=== PATIENT | female | born 1935 | race Caucasian/White ===

== ENCOUNTER 2016-08-27 09:26 | Inpatient (IN) | payer OTHER ==
--- NOTE | 2016-08-27 10:03 | PROVIDER DOCUMENTATION ---
HPI-Head Injury <Yeny Richard - Last Filed: 08/27/16 12:05> - General Source: patient, family - History of Present Illness-Head Injury Head Injury Location: reports: parietal Other injuries associated with incident:: reports: none Quality of Pain: reports: throbbing Severity: reports: moderate Onset/Duration: reports: abrupt, just prior to arrival Timing: reports: still present, constant Method of Injury: reports: direct blow, fell Any recent trauma/injury?: reports: none Loss of Consciousness: no loss of consciousness Modifying Factors: improves with: nothing Injury Associated Symptoms: reports: headaches. denies: back/neck pain, chest pain, dizziness, vomiting, weakness, trouble walking Locality of Occurance: Home Similar Symptoms Previously?: No Recently seen or treated by another doctor?: No <Geronimo Damon - Last Filed: 08/27/16 15:10> - General Chief Complaint: Head Injury Stated Complaint: FALL-HEAD LAC Time Seen by Provider: 08/27/16 09:57 Allergies/Adverse Reactions: Patient Allergies Allergy/AdvReac Type Severity Reaction Status Date / Time No Known Allergies Allergy Verified 08/27/16 11:09 Home Medications: Amlodipine Besylate [Norvasc] 10 mg PO DAILY 02/23/14 Ergocalciferol (Vitamin D2) [Vitamin D2] 50,000 unit PO DIRECTED 02/23/14 Lansoprazole [Prevacid] 30 mg PO DAILY 02/23/14 Levothyroxine [Synthroid] 125 microgm PO DAILY 02/23/14 Spironolactone 25 mg PO DAILY 02/23/14 Aspirin EC 81 mg PO DAILY 08/27/16 Calcitriol 0.25 mcg PO DAILY 08/27/16 Donepezil [Aricept] 10 mg PO DAILY 08/27/16 Furosemide [Lasix] 20 mg PO DAILY 08/27/16 Hydralazine HCl 100 mg PO TID 08/27/16 Iron,Fm,Ps/Folic/B,C18/L.casei [Fusion Plus Capsule] 1 each PO DAILY 08/27/16 Memantine HCl [Namenda Xr] 28 mg PO DAILY 08/27/16 - History of Present Illness-Head Injury Nature of Presenting Problem: patient is a 81 y/o F that presents with laceration to posterior head and skin tear to left elbow after falling this am. It is unclear what happened during the fall due to patient's dementia. She can not report anything that happened. family reports patient has had fatigue and weakness over the past week. (Geronimo Damon) Review of Systems - Adult - REVIEW OF SYSTEMS - ADULT Constitutional: reports: no symptoms reported Eyes: denies: decreased vision, blurred vision, double vision, eye pain Ears, Nose, Mouth & Throat: denies: ear discharge, epistaxis, loose teeth, mouth /dental pain, mouth swelling Cardiovascular: denies: chest pain, palpitations, syncope Respiratory: denies: dyspnea on exertion, hemoptysis, shortness of breath Gastrointestinal: denies: abdominal pain, nausea, vomiting Genitourinary: reports: no symptoms reported Musculoskeletal: denies: back pain, joint pain, neck pain Integumentary: reports: other (laceration). denies: itching, rash Neurological: reports: headache/migraines. denies: dizziness/vertigo, seizure, syncope Psychiatric: reports: no symptoms reported Endocrine: reports: no symptoms reported Hematologic/Lymphatic: reports: no symptoms reported Allergic/Immunologic: reports: no symptoms reported All Other Systems: Reviewed and Negative <Geronimo Damon - Last Filed: 08/27/16 15:10> Past History - Adult - PAST MEDICAL HISTORY-ADULT Review of Records: reports: Old Records Reviewed, Nursing Assessment Review, Medications Reviewed Cardiovascular: reports: HTN Neurological: reports: CVA, dementia Endocrine/Immune: reports: thyroid disorder - PRIOR SURGERIES/PROCEDURES Surgical/Procedure History: reports: other (cataracts) - IMMUNIZATION STATUS Childhood Immunizations: See Nurse Assessment Flu Vaccine: See Nurse Assessment - FAMILY HISTORY Family History: reviewed, not pertinent - SOCIAL HISTORY Smoking: quit greater than 1 year, cigarettes Living Situation: family <Geronimo Damon - Last Filed: 08/27/16 15:10> Physical Exam- Neurological - Physical Exam-Neuro Initial Vital Signs Reviewed: Yes General Appearance: alert (2.5 cm to posterior head), no apparent distress Eye Exam: bilateral eye: other (pinpoint ) HENMT: moist mucous membranes, normal ENT inspection, TMs normal Head Injury: lacerations. negative: Crow's Sign, raccoon eyes Neck: non-tender, full range of motion, normal inspection. negative: lymphadenopathy Respiratory: lungs clear, normal breath sounds, no respiratory distress, no accessory muscle use Cardiovascular: regular rate, rhythm, no edema, no murmur Abdominal Exam: normal bowel sounds, non tender, soft Extremity: normal range of motion, no calf tenderness, normal capillary refill, pelvis stable. 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 negative: anxious, depressed affect - Glascow Coma Scale Best Eye Response: (4) open spontaneously Best Verbal Response: (5) oriented Best Motor Response: (6) obeys commands Total Glascow Score: 15 <Geronimo Damon - Last Filed: 08/27/16 15:10> Progress - CT/MRI 1 CT Study: Head Impression: Normal (No acute intracranial disease per radiology) - CONSULTS/PCP/HOSPITALIST Notification #1 *Consult/PCP/Hospitalist*: Dr. Cunningham Time Discussed: 12:06 Reason/Comments: uti, uremia c CKD IV, weakness <Yeny Richard - Last Filed: 08/27/16 12:05> - EKG 1 Time of EKG reading by physician:: 12:08 EKG Read and Signed by:: Chela Camarillo Jr EKG Interpretation (*Must complete 3 of following elements*): Abnormal Rate: 68 Rhythm: Sinus Rhythm PSVCS QRS: LVH W[place] Interval: normal ST Wave: non-specific ST changes <Geronimo Damon - Last Filed: 08/27/16 15:10> - PLAN OF CARE/RESULTS Progress/Plan/Lab Results: Vital Signs Temp Pulse Resp BP Pulse Ox 08/27/16 09:32 97.4 F L 82 16 134/71 100 No Known Allergies Allergy (Verified 08/27/16 11:09) Amlodipine Besylate [Norvasc] 5 mg PO DAILY 02/23/14 Ergocalciferol (Vitamin D2) [Vitamin D2] 50,000 unit PO DIRECTED 02/23/14 Furosemide [Lasix] 20 mg PO BID 02/23/14 Lansoprazole [Prevacid] 30 mg PO DAILY 02/23/14 Levothyroxine [Synthroid] 87.5 microgm PO DAILY 02/23/14 Spironolactone 25 mg PO DAILY 02/23/14 Aspirin EC 81 mg PO DAILY 08/27/16 Calcitriol 0.25 mcg PO DAILY 08/27/16 Donepezil [Aricept] 10 mg PO DAILY 08/27/16 Furosemide [Lasix] 20 mg PO DAILY 08/27/16 I&O 08/26/16 08/27/16 08/28/16 06:59 06:59 06:59 Output Total 10 Balance -10 Laboratory 08/27/16 08/27/16 08/27/16 11:34 10:25 10:25 WBC RBC Hgb Hct MCV MCH MCHC RDW Std Deviation Plt Count MPV Immature Gran % (Auto) Neut % (Auto) Lymph % (Auto) [place] % (Auto) Eos % (Auto) Baso % (Auto) Immature Gran # (Auto) Neut # Lymph # [place] # Eos # Baso # PT INR PTT ([place] FS) Sodium Potassium Chloride Carbon Dioxide Anion Gap BUN Creatinine Estimated GFR/1.73 m2 BUN/Creatinine Ratio Glucose Calculated Osmolality Calcium Total Bilirubin AST ALT Alkaline Phosphatase Creatine Kinase Troponin T 0.078 Total Protein Albumin Globulin Albumin/Globulin Ratio TSH 7.09 H Free T4 1.60 Urine Source CLEAN CATCH Urine Color YELLOW Urine Turbidity HAZY Urine pH 5.5 Ur Specific [place] 1.017 Urine Protein 100 A Ur Glucose (Stick) NEGATIVE Ur Ketones (Stick) TRACE A Urine Blood TRACE A Urine Nitrite NEGATIVE Urine Bilirubin NEGATIVE Urobilinogen Dipstick NORMAL Urine Leukocytes LARGE A Urine WBC (Auto) TNTC A Urine RBC (Auto) 20-40 A U Epithel Cells (Auto) <10 Urine Bacteria (Auto) 1+ 08/27/16 08/27/16 08/27/16 10:25 10:25 10:25 WBC 7.97 RBC 3.61 L Hgb 12.1 Hct 34.8 L MCV 96.4 MCH 33.5 H MCHC 34.8 RDW Std Deviation 13.6 Plt Count 181 MPV 10.2 Immature Gran % (Auto) 2.0 H Neut % (Auto) 83.7 H Lymph % (Auto) 9.4 L [place] % (Auto) 4.5 Eos % (Auto) 0.3 Baso % (Auto) 0.1 Immature Gran # (Auto) 0.16 H Neut # 6.67 H Lymph # 0.75 L [place] # 0.36 Eos # 0.02 Baso # 0.01 PT 10.6 INR 1.00 PTT (Actin FS) 22.9 Sodium 140 Potassium 3.2 L Chloride 95 L Carbon Dioxide 23 L Anion Gap 22 BUN 78 H Creatinine 4.3 H Estimated GFR/1.73 m2 10 BUN/Creatinine Ratio 18 Glucose 91 Calculated Osmolality 302 Calcium 8.9 Total Bilirubin 0.50 AST 27 ALT 9 L Alkaline Phosphatase 90 Creatine Kinase 48 Troponin T Total Protein 7.2 Albumin 3.5 Globulin 3.7 Albumin/Globulin Ratio 0.9 TSH Free T4 Urine Source Urine Color Urine Turbidity Urine pH Ur Specific [place] Urine Protein Ur Glucose (Stick) Ur Ketones (Stick) Urine Blood Urine Nitrite Urine Bilirubin Urobilinogen Dipstick Urine Leukocytes Urine WBC (Auto) Urine RBC (Auto) U Epithel Cells (Auto) Urine Bacteria (Auto) Orders Category Date Time Status Cardiac Monitoring DIRECTED Care 08/27/16 10:13 Active Finger Stick Blood Sugar (ED) DIRECTED Care 08/27/16 10:13 Active Saline Loc NOW Care 08/27/16 10:13 Active HEAD W/O CONTRAST [CT] Stat Exams 08/27/16 10:13 Completed CBC WITH ELECTRONIC DIFF [HEME] Stat Lab 08/27/16 10:25 Completed CK PROFILE [SP CHEM] Stat Lab 08/27/16 10:25 Completed COMPREHENSIVE METABOLIC PANEL [CHEM] Stat Lab 08/27/16 10:25 Completed FREE T4 Stat Lab 08/27/16 10:25 Completed PROTIME WITH INR [COAG] Stat Lab 08/27/16 10:25 Completed PTT [COAG] Stat Lab 08/27/16 10:25 Completed TROPONIN T Stat Lab 08/27/16 10:25 Completed TSH Stat Lab 08/27/16 10:25 Completed URINALYSIS W/POSS RFLX CULT [URINALYSIS] Stat Lab 08/27/16 11:34 Completed URINE CULTURE [RM] Routine Lab 08/27/16 12:03 Received 0.9% Sodium Chloride Inj [Ns] 1,000 ml Med 08/27/16 12:03 Active IV 75 mls/hr CefTRIAXONE 1 GM/NS [Rocephin 1 gm/Ns] 50 ml Med 08/27/16 12:03 Active IV NOW Pulse Oximetry Stat Oth 08/27/16 10:13 Active EKG [EKG] Stat Ther 08/27/16 10:13 Ordered Discussed patient with Dr. Camarillo, who came to bedside for discussion with family about admission. Family is in agreement with plan. They are her power of transactional attorney and patient has a living will. Family said they will obtain this information for processing here. (Yeny Richard) Departure - Departure Time of Disposition Order: 12:06 Certified Medical Emergency: Emergent <Yeny Richard - Last Filed: 08/27/16 12:05> - Departure Time of Disposition Order: 12:06 Certified Medical Emergency: Emergent <Geronimo Damon - Last Filed: 08/27/16 15:10> - Departure DIAGNOSIS: Laceration, CKD (chronic kidney disease) stage 5, GFR less than 15 ml/min, Weakness, Acute UTI Disposition: ADMITTED INPATIENT 09 Condition: Stable Attestation - Physician/ Mid-level Attestation Patient care was provided by Mid-level provider (SNAGGER/PA):: Yes Mid-level provider:: Yeny Richard Mid-level documentation review:: The Mid-level provider documentation, treatment plan and medical decision making was reviewed by the physician who agrees with all treatment and medical decision making by the MLP. The physician spent face to face time with patient:: Yes <Yeny Richard - Last Filed: 08/27/16 12:05> - Scribe Verification/Attestation Scribe:: Geronimo Damon Acting as Scribe for:: Yeny Richard Scribe documention review:: This chart was documented by a scribe and accurately reflects the service the provider performed and the decisions made by the provider. - Physician/ Mid-level Attestation Patient care was provided by Mid-level provider (SNAGGER/PA):: Yes Mid-level provider:: Yeny Rcihard Mid-level documentation review:: The Mid-level provider documentation, treatment plan and medical decision making was reviewed by the physician who agrees with all treatment and medical decision making by the MLP. <Geronimo Damon - Last Filed: 08/27/16 15:10> Physician Attestation
[2016-08-27 10:39] LABS: MANUAL DIFF NEEDED? NO
[2016-08-27 10:41] LABS: BASO% 0.1 % (0.0-0.8); EOS# 0.02 X1000 (0.0-0.7); EOS% 0.3 % (0.0-10.0); HEMATOCRIT 34.8 % (37.0-47.0); HEMOGLOBIN 12.1 g/dL (12.0-16.0); IMM GRAN# 0.16 X1000 (0.0-0.04); LYMPH# 0.75 X1000 (1.2-3.4); LYMPH% 9.4 % (20.5-51.1); MCH 33.5 PG (27-31); MCHC 34.8 g/dL (33-37); MCV 96.4 FL (81-99); MONO# 0.36 X1000 (0.11-0.59); MONO% 4.5 % (1.7-9.3); MPV 10.2 FL (7.4-10.4); NEUT% 83.7 % (42.2-75.2); PLT 181 X1000 (130-400); RBC 3.61 XMIL (4.2-5.4)
[2016-08-27 10:49] LABS: PROTIME 10.6 Seconds (9.2-11.7); PTT 22.9 Seconds (22.0-36.0)
--- NOTE | 2016-08-27 10:57 | Diag Imaging Result Document ---
PROCEDURE NAME: HEAD W/O CONTRAST - 08/27/2016 CT OF THE HEAD WITHOUT CONTRAST: FINDINGS: There are calcifications in the internal carotid arteries bilaterally as well as the right vertebral artery. There is mild generalized cerebral atrophy. There is a lacune present in the basal ganglia on the left which has a maximum dimension of 11 mm. Some patchy lucencies are present in the external capsule regions bilaterally. There are no previous studies available for comparison. There is no evidence of bleed or abnormal extra-axial fluid collection. The visualized paranasal sinuses are clear. No acute bony abnormalities are present. There is apparently a scalp laceration over the vertex and posterior right parietal bone. IMPRESSION: 1. No evidence of acute intracranial disease. 2. Chronic microvascular changes. 3. Scalp laceration.
[2016-08-27 11:05] LABS: ALBUMIN 3.5 g/dL (3.5-5.0); CALCIUM 8.9 mg/dL (8.8-10.2); POTASSIUM 3.2 mmol/L (3.5-5.1); TOTAL BILIRUBIN 0.5 mg/dL (0.20-1.00); TOTAL PROTEIN 7.2 g/dL (6.3-8.3)
[2016-08-27 11:09] LABS: FREE T4 1.6 ng/dL (0.93-1.70)
[2016-08-27 11:36] LABS: URINE MICRO REVIEW NEEDED? NO; URINE SOURCE CLEAN CATCH
[2016-08-27 11:48] LABS: BILIRUBIN URINE NEGATIVE (NEGATIVE); BLOOD URINE TRACE (NEGATIVE); COLOR YELLOW; GLUCOSE URINE NEGATIVE (NEGATIVE); LEUKOCYTES URINE LARGE (NEGATIVE); NITRITE URINE NEGATIVE (NEGATIVE); PH URINE 5.5; PROTEIN URINE 100 mg/dL (NEGATIVE); SP GRAVITY URINE 1.017; TURBIDITY URINE HAZY (CLEAR); UROBILINOGEN URINE NORMAL (NORMAL)
[2016-08-27 11:49] LABS: UR EPITHELIAL CELLS <10 /HPF (<10); URINE BACTERIA 1+ /HPF; URINE CULTURE NEEDED? YES; URINE RBC 20-40 /HPF (<10); URINE WBC TNTC /HPF (<10)
[2016-08-27] MEDS ORDERED: ROCEPHIN 1 GM/NS 50 ML IV ONE (12:03)
[2016-08-27] MEDS ORDERED: NS 1,000 ML IV ONE (12:03)
--- NOTE | 2016-08-27 13:37 | HISTORY AND PHYSICAL ---
HISTORY OF PRESENT ILLNESS: This is an 81-year-old white female. She lives alone. Her sitter came over and she was sitting up in a chair but obviously had fallen and hit her head. She had about a 6 cm gash in the occiput that required 6 stitches. She has dementia. She did not give any history of syncope or presyncope or pain or whether she stumbled. Family has noted over the last several months seeing a pretty impressive decline in her cognitive ability and her weakness. Her appetite is very poor. She presented to the emergency room. PAST MEDICAL HISTORY: She has apparently had a history of abdominal hysterectomy, bladder surgery. I think she has had a history of hypertension and questionable history of coronary artery disease. She is on Plavix. HOME MEDICATIONS: Norvasc 5 mg a day, aspirin 81 mg a day, calcitriol 0.25 mcg p.o. daily, Aricept 10 mg p.o. daily, vitamin D2 68747 units I think once a week, Lasix 20 mg p.o. b.i.d. or once a day depending, Prevacid 30 mg a day, Synthroid 87.5 mg daily, spironolactone 25 mg a day. FAMILY HISTORY: Noncontributory. SOCIAL HISTORY: Lives alone. Lost her . Has a sitter come check on her. Very attentive family. REVIEW OF SYSTEMS: Unable to really give us but the family feels like she has lost weight. Appetite has declined. They have not noticed any respiratory distress.Cardiovascular: No complaints of chest pain or signs of shortness of breath. GI/: They have not noticed any change in bowels or bladder. PHYSICAL EXAMINATION: VITAL SIGNS: Today temp 97.4 degrees, pulse 82, respirations 16, blood pressure 134/70. EYES: Pupils are equal and round. LUNGS: Clear in all lung terrell. CARDIOVASCULAR: Regular rhythm and rate without murmur or S3. ABDOMEN: Soft. SKIN: Warm and dry. A 6 cm laceration, jagged on the occiput, back of her head with sutures applied. NEUROLOGIC: She is alert and oriented to person and place. Very pleasant. LAB: White count 7,970, hematocrit 34, platelet count 181,000. Sodium 140, potassium 3.2, chloride 95, bicarb 23, BUN 78, creatinine 4.3. Liver function is unremarkable. TSH was 7.09, T4 is 1.6. PT is 10.6, INR is 1.0, PTT is 22. Urinalysis: Vwz-vvzkzxri-mk-count white blood cells, 20-40 red blood cells, 1+ bacteria, leukocytes large. CT of her head without contrast: No evidence of acute intracranial disease. Chronic microvascular changes. Scalp laceration appreciated. In looking back to see if she has had an echocardiogram, I do not see that and maybe well worth getting this time. In looking back at old EKGs, unremarkable. ASSESSMENT AND PLAN: 1. A fall and laceration to her head. Do not know what happened. Do not know if it was syncopal or not. CT of the head without contrast is unremarkable. She has underlying dementia and cannot give much history. We will watch and observe. I am assuming she may have had a concussion with this. We will look for sign of arrhythmia or neurologic changes. She has no history to suggest seizure. There was no incontinence of bowel or bladder that was noted. 2. Urinary tract sediment. I suspect urinary tract infection. She gives no history of dysuria or gross hematuria but we are going to treat her for a urinary tract infection and possibly even pyelonephritis. 3. Underlying dementia. She is on maximum medications and they are starting see progression. Family needs to decide about level of independence and whether it is time to go to a care home. We will see how she does with treatment. 4. Chronic kidney disease. Serum creatinine is 4. In looking back at her creatinine, back in May 2012 it was 1.9. So I am not sure of other levels and how fast this is deteriorating. Will give her fluids. She does look intravascularly dry at this time. 5. Intravascular volume depletion. Creatine kinase is okay at 48. Albumin is 3.5. Thyroid looks good. Folate a little low. B12 is a good level, 700.
[2016-08-27] MEDS ORDERED: TYLENOL PO PRN (13:49)
[2016-08-27] MEDS ORDERED: ZOFRAN IV PRN (13:49)
[2016-08-27] MEDS: LEVAQUIN 250 MG/D5W 50 ML IV SCH (15:23)
[2016-08-27] MEDS: NS 1,000 ML IV SCH (15:27)
--- NOTE | 2016-08-27 16:31 | CONSULTATION ---
DATE OF CONSULTATION: 08/27/2016 REASON FOR CONSULTATION: Assistance with management. HISTORY OF PRESENT ILLNESS: Ms. Salcedo is an 81-year-old white female who is well known to me. She has known stage 5 chronic kidney disease that has been progressively worsening in the last 1 year. She has been also declining from a cognitive standpoint in the last year. She had the loss of her about a year ago. Since that time she has been worse. She is functionally worse, though she has still been living alone. She has a caregiver who stays with her for 8 hours a day but she spends the night alone and her daughter checks on her daily. Today she came to the door to the let the family in and she had blood caked on the back of her head and on the hands. She was not able to relate the injury and does not know yet how that happened. The family states that over the last 2 weeks she has been much more confused and disoriented on occasion. Regarding her renal dysfunction, she has known stage 5 disease and her creatinine today is really not far from her baseline creatinine. We have been discussing renal replacement therapy with her and she attended our modality education class. Her daughter and son spoke with her about this and in fact, her daughter attended class with her. She was emphatic at that time that she did not want to do any form of dialysis and both of her children are aware of her opinion and accept that decision. PAST MEDICAL HISTORY: 1. Stage 5 chronic kidney disease as above. 2. Dementia. 3. Hypertension. 4. Hypothyroidism. HOME MEDICATIONS: Amlodipine, aspirin, calcitriol, Aricept, vitamin D, furosemide, Prevacid, Synthroid, spironolactone. ALLERGIES: None. SOCIAL HISTORY: As above. FAMILY HISTORY: Noncontributory. REVIEW OF SYSTEMS: Noncontributory except as above. PHYSICAL EXAMINATION: Vital Signs: Blood pressure 134/71, heart rate 70, respiration 18, afebrile. General: She is an elderly woman, pleasant and conversant, eating her dinner. No acute distress. She greeted me by name. Skin: Warm and dry. HEENT: She has blood caked in her hair and multiple donn on the posterior part of her scalp conjunctivae are pink. Pupils are equal. Oropharynx is clear and moist. Dentition normal. Neck: Supple. Trachea is midline. No jugular venous distention. Heart: Regular with a gallop. No murmurs. Lungs: Have equal breath sounds. No crackles or wheezes. Abdomen: Obese and soft. Bowel sounds are present. Extremities: Have 1+ edema. No clubbing or cyanosis. Neurologic Exam: Grossly nonfocal. She moves all extremities. Her facial muscles are symmetrical. Pupils are symmetrical, etc. She knows where she is but she does not know the date or time of year or the season. She is able to recognize me by name and her daughter by name and her granddaughter's 1st name, though she cannot remember her last name. IMPRESSION AND PLAN: Stage 5 chronic kidney disease. It is not clear to me that her current symptoms are in any way related to her renal dysfunction. At any rate, she has made clear that she does not want renal replacement therapy. I respect this decision and see no reason to revisit this issue. Regarding her worsened mental status, I certainly agree that treating any reversible issues would be the best plan. She is currently on Levaquin to treat her urinary tract infection and I think that is appropriate. She is receiving IV fluids and I think that is appropriate for 24 hours but will consider discontinuation in the morning. She certainly is eating and drinking well currently. She needs to be a DNR.
[2016-08-28 06:44] LABS: HEMATOCRIT 29.1 % (37.0-47.0); HEMOGLOBIN 9.8 g/dL (12.0-16.0); MCH 33.4 PG (27-31); MCHC 33.7 g/dL (33-37); MCV 99.3 FL (81-99); MPV 9.9 FL (7.4-10.4); RBC 2.93 XMIL (4.2-5.4)
[2016-08-28 06:50] LABS: INR 1.03; PROTIME 10.9 Seconds (9.2-11.7); PTT 23.7 Seconds (22.0-36.0)
[2016-08-28 07:25] LABS: ALBUMIN 2.9 g/dL (3.5-5.0); CALCIUM 8.6 mg/dL (8.8-10.2); POTASSIUM 3.1 mmol/L (3.5-5.1); TOTAL BILIRUBIN 0.46 mg/dL (0.20-1.00)
--- NOTE | 2016-08-28 07:25 | EKG Report ---
Test Performed on : 08/28/2016 06:31:03 AM Test Reason : chest pain Blood Pressure : / mmHG Vent. Rate : 063 BPM Atrial Rate : 063 BPM P-R Int : 184 ms QRS Dur : 082 ms QT Int : 470 ms P-R-T Axes : 059 025 182 degrees QTc Int : 480 ms Normal sinus rhythm. with sinus arrhythmia. Voltage criteria for left ventricular hypertrophy ST & T wave abnormality, consider lateral ischemia (vs. LVH repolarization abn) Abnormal ECG When compared with ECG of 27-AUG-2016 12:08, (Unconfirmed) premature supraventricular complexes. are no longer present T wave inversion no longer evident in V3 Confirmed by Alex Nguyen DO ([id number]) on 08/28/2016 6:41:51 PM
[2016-08-28] MEDS: SYNTHROID PO SCH (10:14)
[2016-08-28] MEDS: ARICEPT PO SCH (10:14)
[2016-08-28] MEDS: NS 1,000 ML IV SCH ×3 (15:09→21:47)
[2016-08-28] MEDS: LEVAQUIN 250 MG/D5W 50 ML IV SCH (15:09)
[2016-08-28] MEDS ORDERED: LABETALOL IV PRN (15:57)
[2016-08-28] MEDS: APRESOLINE PO SCH ×2 (16:11→21:47)
[2016-08-28] MEDS: NORVASC PO SCH (16:11)
--- NOTE | 2016-08-28 16:27 | PROGRESS NOTE ---
DATE: 08/28/2015 SUBJECTIVE: Patient currently sitting up in bed. She has been ambulating to the bathroom with assistance from her daughter. OBJECTIVE: Vital Signs: Temperature 98.1 degrees, pulse 79, respiratory rate 18, blood pressure 158/58. Intake and output: Intake 625 mL. Output has not been measured. General: This is a pleasant, elderly female sitting up on the side of the bed. She does have some confusion noted. HEENT: Normocephalic. She has donn noted. Conjunctivae are pink. Oral mucosa is moist. Neck: Supple. Trachea midline. There is no JVD. Cardiovascular: Regular rate and rhythm. S4. Pulmonary: She has equal excursion. She is clear bilaterally. Abdomen: Obese , soft, with positive bowel sounds. : Not inspected. She is voiding. Extremities: She has 1+ pretibial edema but no clubbing or cyanosis. She is ambulatory with minimal assistance. Integumentary: Skin is warm and dry otherwise. LAB DATA: WBC of 4.6, hemoglobin 9.8. Sodium 142, potassium 3.1, CO2 24, BUN 75, creatinine 3.7, calcium 8.6, albumin 2.9. ASSESSMENT AND PLAN: 1. Stage 5 chronic kidney disease with worsening of renal function. She has had a mild improvement with her creatinine overnight; however, this does not change her current status. The patient and family have made a decision that renal replacement therapy is not appropriate for her and is not desired. I had a long discussion with the daughter regarding typical outcomes of patients with renal failure who do not undergo dialysis. She has requested that we consult palliative care to perhaps initiate hospice for home health if possible. We will be happy to assist with this need. 2. Electrolytes, acid-base balance. Acceptable. 3. Anemia, stable. Continue to monitor. 4. Blood pressure acceptable. Seen, data reviewed, discussed with Octavio Silver on 08/28/15. I agree with the above assessment and plan of care. rg Dictated by PHILLY Dunn for Kalpesh Villagran MD [facility]
--- NOTE | 2016-08-28 17:46 | ECHO REPORT ---
ORDER DATE: 08/28/2016 INDICATION: Fall, laceration to the head. FINDINGS: 1. Right atrium is normal size. 2. Mild tricuspid regurgitation. RV systolic pressure of 29. 3. Normal RV size and systolic function. 4. Mild pulmonic insufficiency. 5. Normal left atrial size at 3.4. 6. No mitral valve prolapse. Mild mitral regurgitation. 7. Normal LV size, end-diastolic dimension of 3.6 cm. Normal LV wall thicknesses with a posterior and interventricular septal wall thickness of 0.9 cm each. Normal LV systolic function. Calculated EF of 63%. 8. The aortic valve appears calcified with restriction of motion. The peak gradient across the valve is 24 with a mean of 13. The valve area was calculated at 1.1 cm2. The valve area would suggest moderate aortic stenosis, but the gradients would suggest mild. Given the fact that there is no left ventricular hypertrophy, and the left atrium is normal and the gradients are so low, I would suspect that this is more likely mild aortic stenosis. There is mild aortic insufficiency. 9. The aorta appears normal in visualized segments. 10. No pericardial effusion seen.
--- NOTE | 2016-08-28 18:01 | PROGRESS NOTE ---
DATE: 08/28/2016 SUBJECTIVE: Patient does not recall what happened to her. She notes that she lost consciousness but she did not remember anything else about it. She is feeling fine. Oriented. OBJECTIVE: Vital Signs: Temperature 98.1 degrees, heart rate 79, respiratory rate 18, blood pressure 158/58, O2 saturation 96% on room air. General Examination: This is an 81-year-old female lying in bed in no acute distress. HEENT: Head is normocephalic, atraumatic. Anicteric sclerae and pale conjunctivae. Mucous membranes moist. Neck: Supple. No JVD noted. No carotid bruits. No lymphadenopathy. No thyromegaly. Cardiovascular: S1, S2 heard. No murmurs, gallops, or rubs. Regular rate and rhythm. Respiratory Examination: Clear bilaterally to auscultation. No work of breathing or using accessory muscles. Abdomen: Soft, nontender to palpation. Bowel sounds present. No organomegaly. Extremities: No clubbing, cyanosis, or edema. Peripheral pulses present in both legs. Neurological: Patient is alert and oriented x3. Able to move her extremities. Cranial nerves 2-12 grossly normal. LABORATORY DATA: White cell count 4.65, hemoglobin 9.8, hematocrit 29.1, platelets 139,000. Sodium 142, potassium 3.1, chloride 103, bicarb 24, BUN 75, creatinine 3.9. ASSESSMENT AND PLAN: 1. Syncope. At this point we do not know exactly what happened with this patient. She lost consciousness. She hit her head needing to have 6 stitches to repair this laceration in the head. At this time patient is fine, not complaining of major headache. At this time will continue watching her closely. 2. Urinary tract infection. At this point will continue with levofloxacin and the urine culture shows gram-negative rods. Will follow the results of the urine culture really close. 3. Underlying dementia stable. 4. Chronic kidney disease, actually the renal function has worsened from 1.9 five years ago to today. At this time will continue with IV fluids. We will see how this patient does. 5. Intravascular volume depletion stable now.
[2016-08-29] MEDS: NS 1,000 ML IV SCH (06:31)
[2016-08-29 06:40] LABS: HEMATOCRIT 28.3 % (37.0-47.0); HEMOGLOBIN 9.6 g/dL (12.0-16.0); MCH 33.8 PG (27-31); MCHC 33.9 g/dL (33-37); MCV 99.6 FL (81-99); MPV 10.1 FL (7.4-10.4); RBC 2.84 XMIL (4.2-5.4)
[2016-08-29 07:12] LABS: ALBUMIN 2.7 g/dL (3.5-5.0); POTASSIUM 2.9 mmol/L (3.5-5.1)
--- NOTE | 2016-08-29 08:40 | PROGRESS NOTE ---
DATE: 08/29/2016 SUBJECTIVE: Patient resting in bed. She is at her usual baseline mental state with confusion. She is pleasant and cooperative with the examination. PHYSICAL EXAMINATION: Vital Signs: Temperature 97.4 degrees, pulse 70, respiratory rate 19, blood pressure 172/58, intake 230 mL, output 1.1 L. General: This is an elderly female, resting in bed. No acute distress. HEENT: Normocephalic, with donn noted. GALLO. Oral mucosa moist. Neck: Supple. No JVD. Cardiovascular: Regular rate and rhythm. No murmur or gallop appreciated today. Pulmonary: Equal excursion. Clear bilaterally. Abdomen: Soft with positive bowel sounds. : Not inspected. She continues to void. Extremities: She has trace pretibial edema. No clubbing or cyanosis. She is ambulatory with assistance. Integumentary: Skin is warm and dry otherwise. She does have some bruising noted to the upper extremities from her fall. LAB DATA: WBC of 4.7, hemoglobin 9.6. Sodium 141, potassium 2.9, CO2 22, BUN 60, creatinine 3, albumin 2.7. ASSESSMENT AND PLAN: 1. Chronic kidney disease stage V with overlying acute kidney injury. She has continued to have some mild improvement with her creatinine over the last 24 hours. Her filter rate is still below 20 and she is still chronic kidney stage V. Continue to monitor. No dialysis. 2. Electrolytes, acid-base balance. Her potassium is low. Add adjunct therapy. 3. Anemia, stable. 4. Hypertension. Home medications started. Seen, data reviewed, discussed with Octavio Silver on 08/29/16. I agree with the above assessment and plan of care. rg Dictated by PHILLY Dunn for Kalpesh Villagran MD [facility]Maria G
[2016-08-29] MEDS ORDERED: POTASSIUM CHLORIDE 20% LIQUID PO ONE (08:44)
[2016-08-29] MEDS: ASPIRIN EC PO SCH (08:46)
[2016-08-29] MEDS: SYNTHROID PO SCH (08:46)
[2016-08-29] MEDS: THERA M PLUS PO SCH (08:47)
[2016-08-29] MEDS: ARICEPT PO SCH (08:47)
[2016-08-29] MEDS: NAMENDA XR PO SCH (08:47)
[2016-08-29] MEDS: APRESOLINE PO SCH ×3 (08:47→23:13)
[2016-08-29] MEDS: NORVASC PO SCH (08:47)
--- NOTE | 2016-08-29 13:18 | PROGRESS NOTE ---
DATE: 08/29/2016 SUBJECTIVE: Patient reports feeling fine. No headache. No nausea or vomiting. No fever or chills. OBJECTIVE: Vital Signs: Temperature 97.7 degrees, heart rate 79, respiratory rate 16, blood pressure 137/44, O2 saturation 97% on room air. General Examination: This is an 81-year-old female lying in bed, in no acute distress. HEENT: Head is normocephalic, atraumatic. Anicteric sclerae. Pale conjunctivae. Neck: Supple. No JVD noted. No carotid bruits. No lymphadenopathy. Cardiovascular: S1, S2 heard. No murmurs, gallops, or rubs. Regular rate and rhythm. Respiratory: Clear bilaterally to auscultation. No work of breathing or using accessory muscles. Abdomen: Soft. Nontender to palpation. Bowel sounds present. No organomegaly. Extremities: No clubbing, cyanosis, or edema. Peripheral pulses present in both legs. Neurological: Patient is alert and oriented x3. Able to move 4 extremities. Cranial nerves 2 through 12 grossly normal. LABORATORY DATA: White cell count 4.7, hemoglobin 9.6, hematocrit 28.3, platelets 136,000. Sodium 141, potassium 2.9, chloride 106, bicarbonate 22, BUN 60, creatinine 3.0. ASSESSMENT AND PLAN: 1. Syncope, unclear at this point. At this point he has not had any more episodes of loss of consciousness. 2. Urinary tract infection. Urine culture has shown Klebsiella and that is almost pansensitive so I am going to switch to cefazolin today and that medication can be easily switched to cephalexin upon discharge. 3. Chronic kidney disease. Patient has stage 5 chronic kidney disease and as per Nephrology, they think that this patient may need hemodialysis in the near future. Patient refused that treatment and she understands the risk of developing end-stage renal disease. In any case, we will see what Nephrology also has to say. 4. Underlying dementia. That condition is stable.
[2016-08-29] MEDS: LEVAQUIN 250 MG/D5W 50 ML IV SCH (14:14)
--- NOTE | 2016-08-30 07:02 | PROGRESS NOTE ---
DATE: 08/30/2016 SUBJECTIVE: She is lying in bed with no covers and fanning her gown. She has no complaints otherwise. No shortness of breath. No chest discomfort. OBJECTIVE: Vital Signs: Blood pressure 154/68, heart rate 80, respirations 17, afebrile. Intake and output are incomplete. General: On physical exam, no acute distress. Skin: Warm and dry. HEENT: Conjunctivae are pink. Neck: The neck veins are not distended. Heart: Regular with a murmur. Lungs: Have equal breath sounds. No crackles. Abdomen: Soft and nontender. Bowel sounds are present. Extremities: Have no edema, clubbing, or cyanosis. LABORATORY DATA: Pending this morning. IMPRESSION: 1. Stage 5 chronic kidney disease, essentially stable. Her laboratories have actually improved. From my perspective, she can be discharged home at any time. We have made contact with palliative care and asked them to participate. Again, she and the family do not desire renal replacement therapy. 2. Urinary tract infection. Low level growth of Klebsiella in the urine. This can be treated orally.
[2016-08-30 07:29] LABS: HEMATOCRIT 27.9 % (37.0-47.0); HEMOGLOBIN 9.4 g/dL (12.0-16.0); MCH 33.3 PG (27-31); MCHC 33.7 g/dL (33-37); MCV 98.9 FL (81-99); MPV 10.3 FL (7.4-10.4); RBC 2.82 XMIL (4.2-5.4)
[2016-08-30 07:34] LABS: ALBUMIN 2.8 g/dL (3.5-5.0); CALCIUM 8.5 mg/dL (8.8-10.2); POTASSIUM 3.3 mmol/L (3.5-5.1)
[2016-08-30] MEDS: ASPIRIN EC PO SCH (09:41)
[2016-08-30] MEDS: NORVASC PO SCH (09:41)
[2016-08-30] MEDS: THERA M PLUS PO SCH (09:41)
[2016-08-30] MEDS: SYNTHROID PO SCH (09:41)
[2016-08-30] MEDS: APRESOLINE PO SCH ×3 (09:41→21:05)
[2016-08-30] MEDS: NAMENDA XR PO SCH (09:41)
[2016-08-30] MEDS: ARICEPT PO SCH (09:41)
--- NOTE | 2016-08-30 11:44 | Diag Imaging Result Document ---
PROCEDURE NAME: CHEST-PORTABLE - 08/30/2016 PORTABLE CHEST X-RAY: COMPARISON: 03/20/2012. FINDINGS: The lungs are normally expanded and clear. Heart size and mediastinal contours are normal. No pneumothorax or pleural effusion. IMPRESSION: Negative exam.
--- NOTE | 2016-08-30 15:37 | PROGRESS NOTE ---
DATE: 08/30/2016 SUBJECTIVE: Patient reports feeling fine. Able to walk around with physical therapy. No complaints at this time. OBJECTIVE: Vital Signs: Temperature 98.0 degrees, heart rate 71, respiratory 19, blood pressure 150/49, and O2 saturation 97% on room air. General examination: This is an 81-year-old female, lying in bed in no acute distress. HEENT: Head is normocephalic, atraumatic. Anicteric sclerae and pale conjunctivae. Mucous membranes moist. Neck: Supple. No JVD noted. No carotid bruits. No lymphadenopathy. No thyromegaly. Cardiovascular exam: S1 and S2 heard. No murmurs, gallops, or rubs. Regular rate and rhythm. Respiratory exam: Clear bilaterally to auscultation. No work of breathing or using accessory muscles. Abdomen: Soft, nontender to palpation. Bowel sounds present. No organomegaly. Extremities: No clubbing, cyanosis, or edema. Peripheral pulses present in both legs. Neurological exam: Patient is alert and oriented x3. Able to move 4 extremities. Cranial nerves grossly normal. LABORATORY DATA: White cell count 5.10, hemoglobin 9.4, hematocrit 27.9 and platelets 144. BMP shows sodium 141, potassium 3.3, chloride 105, bicarbonate 17, BUN 52, creatinine 3.1. ASSESSMENT AND PLAN: 1. Syncope of unclear etiology. At this point, patient has not had more episodes of loss of consciousness, so we will continue watching this patient. 2. Urinary tract infection. Positive for Klebsiella pneumonia. So, this patient will be switched easily to cephalexin upon discharge. 3. Chronic kidney disease. As we mentioned before, patient has been evaluated by Dr. Villagran and they declined to have any hemodialysis. So, from their standpoint, patient is good to go. 4. Underlying dementia, stable. 5. Deconditioning. Actually initially we were planning to send this patient to rehabilitation facility, but after evaluated by physical therapy she is walking good, so tomorrow she will be discharged to assisted living facility.
[2016-08-30] MEDS: LEVAQUIN 250 MG/D5W 50 ML IV SCH (16:22)
[2016-08-31] MEDS: SYNTHROID PO SCH (06:04)
[2016-08-31 08:16] VITALS: BP 166/58
[2016-08-31] MEDS: ARICEPT PO SCH (08:23)
[2016-08-31] MEDS: NORVASC PO SCH (08:23)
[2016-08-31] MEDS: NAMENDA XR PO SCH (08:23)
[2016-08-31] MEDS: APRESOLINE PO SCH (08:23)
[2016-08-31] MEDS: ASPIRIN EC PO SCH (08:23)
[2016-08-31] MEDS: THERA M PLUS PO SCH (08:23)
[2016-08-31 08:51] LABS: ALBUMIN 3.3 g/dL (3.5-5.0); CALCIUM 9.2 mg/dL (8.8-10.2); POTASSIUM 3.5 mmol/L (3.5-5.1)
[2016-08-31 09:03] LABS: HEMATOCRIT 34.6 % (37.0-47.0); MCH 33.5 PG (27-31); MCHC 34.4 g/dL (33-37); MCV 97.5 FL (81-99); MPV 9.9 FL (7.4-10.4); RBC 3.55 XMIL (4.2-5.4)
[2016-08-31 09:04] LABS: HEMOGLOBIN 11.9 g/dL (12.0-16.0)
--- NOTE | 2016-08-31 21:50 | DISCHARGE SUMMARY ---
ADMISSION DATE: 08/27/2016 DISCHARGE DATE: 08/31/2016 CONSULTATION: Kalpesh Villagran M.D., Nephrology. PERTINENT PROCEDURES: 1. Head CT showed no evidence of acute intracranial disease, chronic microvascular changes, scalp laceration. 2. Echocardiogram showed an EF of 63%. Moderate aortic stenosis gradient suggests mild with mild aortic insufficiency. 3. Chest x-ray was negative. DISCHARGE DIAGNOSES: 1. Syncope of unclear etiology with no more episodes of loss of consciousness. 2. Urinary tract infection. Positive for Klebsiella pneumoniae. Patient going home on p.o. antibiotics. 3. Chronic kidney disease. Evaluated by Dr. Villagran but patient has declined hemodialysis. 4. Underlying dementia, stable. 5. Deconditioning. She was evaluated by Physical Therapy. She is not a candidate for rehabilitation so she will be returning to the assisted living facility today. HOSPITAL COURSE: Ms. Salcedo is an 81-year-old female, who lives alone and does have a sitter come over. On the day of admission the sitter was over. She was sitting up in a chair but she has obviously fallen and hit her head. She had about a 6 cm gash in the occipital region that required 6 stitches. The patient does have dementia. She did not give any history of syncope, presyncope, pain, or whether she stumbled and fell. The family did note over the last several months seeing a pretty impressive decline in her cognitive ability as well as her weakness, poor appetite. A CT of the head that was done while in the ED was unremarkable. I did not find any signs of any arrhythmia or neurological changes. No suggestion of seizures. There was no loss of bowel or bladder that was noted. Her urinary tract did have sediment. It did grow out Klebsiella pneumoniae. She was started on IV antibiotics. She also was intervascularly dry. She was started on IV fluids. Dr. Villagran was consulted. Echocardiogram was also done that showed an EF of 63% with mild aortic stenosis and mild aortic insufficiency. The patient does have stage 5 chronic kidney disease. The patient did make it clear that she did not want renal replacement therapy. The patient was eating and drinking well. She can participate with PT. She does not qualify for any rehabilitation. Her stage 5 chronic kidney disease remained essentially stable. Laboratory data actually improved and Nephrology also made recommendations for palliative care and asked them to participate. I believe palliative care will also be following them as outpatient. The patient is being discharged to assisted living today at [place]. VITAL SIGNS AT TIME OF DISCHARGE: Temperature is 97.4 degrees, heart rate 85, respirations 18, blood pressure 166-58, O2 is 99% on room air. DISCHARGE DIET: Regular. DISCHARGE MEDICATIONS: 1. Norvasc 10 mg p.o. daily. 2. Vitamin D2, 50,000 units p.o. as directed. 3. Prevacid 30 mg p.o. daily. 4. Synthroid 125 mcg p.o. daily. 5. Aricept 10 mg p.o. daily. 6. Aspirin 81 mg p.o. daily. 7. Calcitriol 0.25 mcg p.o. daily. 8. Hydralazine 100 mg p.o. t.i.d. 9. Fusion Plus capsule 1 each p.o. daily. 10. Lasix 20 mg p.o. daily. 11. XR 28 mg p.o. daily. FOLLOWUP: The patient is being discharged to assisted living. She will follow up with her primary care physician, Dr. Berry, in 1 week. I believe she will be followed by palliative care as an outpatient and [facility]. TOTAL TIME SPENT ON DISCHARGE: 35 minutes. Dictated by PHILLY Bryson for Joey Mayen MD [facility]
== END 2016-08-31 12:10 | DRG 312 ==
LOC: ED 09:26 → 3N 13:11
PROVIDERS: ATTEND Internal Medicine
PROC: 0HQ0XZZ Repair Scalp Skin, External Approach (ICD-10-PCS; principal; 2016-08-27)
DX: R55 Syncope and collapse (principal); I12.0 Hypertensive chronic kidney disease with stage 5 chronic kidney disease or end stage renal disease; F03.90 Unspecified dementia, unspecified severity, without behavioral disturbance, psychotic disturbance, mood disturbance, and anxiety; N39.0 Urinary tract infection, site not specified; S01.01XA Laceration without foreign body of scalp, initial encounter; D64.9 Anemia, unspecified; N18.5 Chronic kidney disease, stage 5; E86.9 Volume depletion, unspecified; B96.1 Klebsiella pneumoniae [K. pneumoniae] as the cause of diseases classified elsewhere; I25.10 Atherosclerotic heart disease of native coronary artery without angina pectoris; E03.9 Hypothyroidism, unspecified; S51.012A Laceration without foreign body of left elbow, initial encounter; Z79.899 Other long term (current) drug therapy; Z79.82 Long term (current) use of aspirin; Z79.02 Long term (current) use of antithrombotics/antiplatelets; W19.XXXA Unspecified fall, initial encounter
CPT/HCPCS: 70450; 71010; 80053; 80069; 81001; 82550; 82948; 83735; 84439; 84443; 84484; 85025; 85027; 85610; 85730; 87040; 87077; 87088; 87186; 93005; 93010; 93306; 96365; J0696; J7030; 97001-GP; 97116-GP; 97530-GP